=== PATIENT | female | born 1995 | race African-American/Black ===

== ENCOUNTER 2021-04-07 17:22 | Emergency (ER) | payer OTHER, SELFPAY ==
[2021-04-07] VITALS (17 sets, daily range): BP systolic 123–146; BP diastolic 55–95; PULSE 68–110; RESP 12–25; TEMP 36.3; O2SAT 98–100; BMI 33.3
[2021-04-07] MEDS: fentaNYL 100 MCG/2 ML INJ 50 MCG IV ×2 (17:26→18:18)
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
[2021-04-07] MEDS: ONDANSETRON 4 MG/2 ML INJ IV ×3 (17:28→20:44)
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
[2021-04-07 17:37] LABS: Add Manual Diff / Slide Review NO; Basophils Absolute Auto 0 /uL (0-100); Basophils Percent Auto 0.3 % (0-2); Eosinophils Absolute Auto 100 /uL (0-450); Eosinophils Percent Auto 0.5 % (2-4); Hematocrit 45.9 % (36-46); Hemoglobin 15.4 g/dL (12.0-16.0); Lymphocytes Absolute Auto 3600 /uL (1100-4500); Lymphocytes Percent Auto 25.8 % (25-40); Mean Corpuscular HGB Conc 33.6 % (30-36); Mean Corpuscular Hemoglobin 28.5 PG (26-34); Mean Corpuscular Volume 84.7 fL (80-100); Monocytes Absolute Auto 1300 /uL (0-900); Monocytes Percent Auto 9.4 % (3-14); Neutrophils Absolute Auto 9000 /uL (1500-7000); Platelet Count 345 X10^3/uL (150-400); Red Blood Cell Count 5.42 X10^6/uL (4.0-5.2)
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
[2021-04-07 17:54] LABS: Alanine Aminotransferase 39 IU/L (<35); Albumin 4.7 g/dL (3.5-5.0); Albumin Globulin Ratio 1.3 (1.0-2.8); Alkaline Phosphatase 80 U/L (38-126); Aspartate Aminotransferase 51 IU/L (14-36); BUN Creatinine Ratio 15.8 (6-22); Bilirubin Total 0.2 mg/dL (0.2-1.3); Blood Urea Nitrogen 12 mg/dL (7-17); Calcium 10.2 mg/dL (8.4-10.2); Carbon Dioxide 21 mmol/L (22-32); Chloride 105 mmol/L (98-107); Estimated Glomerular Filt Rate > 60.0 mL/min (>60); Globulin 3.5 g/dL (1.7-4.1); Glucose 111 mg/dL (70-100); HEMOLYSIS < 15 (0-50); Lipase 251 U/L (23-300); Potassium 3.5 mmol/L (3.4-5.1); Sodium 140 mmol/L (137-145); Total Protein 8.2 g/dL (6.3-8.2)
[2021-04-07 17:56] LABS: Pregnancy Test Serum,Qual Negative (Negative)
--- NOTE | 2021-04-07 18:07 | PC.NURSE ---
Mother, Leatha Azusa [phone]
--- NOTE | 2021-04-07 18:13 | PC.NURSE ---
Pt reports that her CP is back to a 9/10 especially with deep breathing. MD ordered a repeat of previous meds
[2021-04-07] MEDS: TET,DIPH,PERTUSS(ACELL),VAC/PF 0.5 ML SYRINGE IM (18:26)
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
[2021-04-07] MEDS: METOCLOPRAMIDE 10 MG/2 ML INJ IV (18:48)
[2021-04-07 19:42] LABS: Ethanol (ETOH) < 10 mg/dL
[2021-04-07 20:15] LABS: COVID19 - ADMIT (NP swab/PCR) Negative (Negative)
[2021-04-07] MEDS: MORPHINE 4 MG/ML INJ IV (20:44)
== END 2021-04-07 21:05 | disposition short-term general hospital (02) ==
PROVIDERS: Emergency Provider Emergency Medicine
DX: E27.49 Other adrenocortical insufficiency (principal); S06.9X9A Unspecified intracranial injury with loss of consciousness of unspecified duration, initial encounter; R07.81 Pleurodynia; M25.552 Pain in left hip; M25.551 Pain in right hip; V89.2XXA Person injured in unspecified motor-vehicle accident, traffic, initial encounter; Z23 Encounter for immunization; Z20.822 Contact with and (suspected) exposure to COVID-19
CPT/HCPCS: 36415; 70450; 71260; 72125; 74177; 80053; 80320; 82962; 83690; 84703; 85025; 87635; 90471; 93005; 96374; 96375; 96376; 99285; 99291; C9803; 90715; J2270; J2405; J2765; J3010; Q9967